=== PATIENT | female | born 1990 | race Two or more races ===

== ENCOUNTER → 2017-05-11 | Outpatient (REF) | payer BC | LOC: M SFHCLACO 08:27 | PROVIDERS: ATTEND Physician Assistant | DX: J30.89 Other allergic rhinitis (principal); K59.09 Other constipation; K21.9 Gastro-esophageal reflux disease without esophagitis ==

== ENCOUNTER 2019-09-15 20:25 | Emergency (ER) | payer BC, OTHER, SELFPAY ==
[~2019-09-15] VITALS: Ht 149.9 cm; Wt 65.4 kg
[2019-09-15 20:25] VITALS: BP 132/74
[2019-09-15] MEDS ORDERED: CETI10CA2 PO (20:28)
[2019-09-15] MEDS ORDERED: OMEP10CASR PO (20:28)
[2019-09-15] MEDS ORDERED: PROAAER10 INH (20:28)
[2019-09-15 21:02] LABS: BASO # 0.1 10^3/uL (0.0-0.2); BASO % 1.1 % (0.0-1.0); EOS # 0.5 10^3/uL (0.0-0.5); EOS % 7.8 % (0.0-3.0); HEMATOCRIT 44.4 % (36.0-47.0); HEMOGLOBIN 14.6 g/dl (12.0-15.5); LYMPH # 2.5 10^3/uL (1.5-5.0); LYMPH % 40.2 % (24.0-44.0); MEAN CORPUSCULAR HEMOGLOBIN 29.3 pg (27.0-33.0); MEAN CORPUSCULAR HGB CONC 32.9 g/dl (32.0-36.5); MEAN CORPUSCULAR VOLUME 89.2 fl (80.0-96.0); MONO # 0.4 10^3/uL (0.0-0.8); MONO % 7.2 % (0.0-5.0); NEUTROPHILS # 2.7 10^3/uL (1.5-8.5); NEUTROPHILS % 43.5 % (36.0-66.0); PLATELET COUNT, AUTOMATED 324 10^3/uL (150-450); RED BLOOD COUNT 4.98 10^6/uL (4.00-5.40); WHITE BLOOD COUNT 6.1 10^3/uL (4.0-10.0)
[2019-09-15 21:20] LABS: ERYTHROCYTE SEDIMENTATION RATE 5 mm/hr (0-20)
[2019-09-15 21:24] LABS: C REACTIVE PROTEIN QUANTITATIV < 0.30 MG/DL (0.00-0.30)
[2019-09-15 21:39] LABS: HCG, SERUM QUALITATIVE NEGATIVE (NEGATIVE)
== END 2019-09-15 21:43 | disposition home or self-care (01) ==
LOC: M ED 20:25
DX: R07.0 Pain in throat (principal); F41.9 Anxiety disorder, unspecified; K21.9 Gastro-esophageal reflux disease without esophagitis; Z79.899 Other long term (current) drug therapy

== ENCOUNTER → 2020-07-17 | Outpatient (CLI) | payer BC ==
[~2020-07-17] MED LIST: CETI10CA2 PO; OMEP10CASR PO; PROAAER10 INH
[2020-07-17 12:14] LABS: CPK CREATINE PHOSPHOKINASE 60 U/L (26-192); RHEUMATOID FACTOR QUANT < 10.0 IU/ML (<15.0)
[2020-07-17 12:21] LABS: VITAMIN B12 LEVEL 626 PG/ML
== END ==
LOC: M PLALAB 09:04
PROVIDERS: ATTEND Psychiatry & Neurology Neurology
DX: R20.2 Paresthesia of skin (principal); M79.10 Myalgia, unspecified site; M32.9 Systemic lupus erythematosus, unspecified

== ENCOUNTER → 2025-04-15 | Outpatient (CLI) | payer BC | LOC: M RAD 08:58 | PROVIDERS: ATTEND Internal Medicine Infectious Disease | DX: R51.9 Headache, unspecified (principal); A69.20 Lyme disease, unspecified ==